=== PATIENT | female | born 1960 | race Caucasian/White ===

== ENCOUNTER 2017-02-05 10:16 | Emergency (ER) | payer BC, OTHER ==
[2017-02-05] MEDS ORDERED: Aspirin 81 MG Tab.Chew PO ONE (10:18)
--- NOTE | 2017-02-05 10:32 | EDM.PDOC ---
ED HPI GENERAL MEDICAL PROBLEM - General Chief Complaint: Chest Pain Stated Complaint: CHEST PAIN Time Seen by Provider: 02/05/17 10:16 Source of Information: Reports: Patient, Family History Limitations: Reports: No Limitations - History of Present Illness INITIAL COMMENTS - FREE TEXT/NARRATIVE: 56 years old w f came to the ed due to sudden onset of pain at her left ant CW as she got up this am. No trauma. First event. No N/V/D ot dizziness or any other acute medical issues. BP 123/67 puls 70 RR16 Temp 36.5 Onset: Today Onset Date: 02/05/17 Onset Time: 06:00 Duration: Hour(s): Location: Reports: Chest Quality: Reports: Ache Severity: Mild Improves with: Reports: Rest Worsens with: Reports: Movement Associated Symptoms: Reports: No Other Symptoms Left Chest Pain Score (Numeric/FACES): 5 - Related Data Allergies Allergy/AdvReac Type Severity Reaction Status Date / Time No Known Allergies Allergy Verified 02/05/17 10:25 Home Meds: Home Meds NK [No Known Home Meds] 02/05/17 [History] ED ROS GENERAL - Review of Systems Review Of Systems: See Below Constitutional: Reports: No Symptoms HEENT: Reports: No Symptoms Respiratory: Reports: No Symptoms Cardiovascular: Reports: Chest Pain (with deep indpiration) Endocrine: Reports: No Symptoms GI/Abdominal: Reports: No Symptoms : Reports: No Symptoms Musculoskeletal: Reports: No Symptoms Skin: Reports: No Symptoms Neurological: Reports: No Symptoms Psychiatric: Reports: No Symptoms Hematologic/Lymphatic: Reports: No Symptoms Immunologic: Reports: No Symptoms ED EXAM, GENERAL - Physical Exam Exam: See Below Exam Limited By: No Limitations General Appearance: Alert, WD/WN, No Apparent Distress Eye Exam: Bilateral Eye: Normal Inspection Ears: Normal External Exam Ear Exam: Bilateral Ear: Auricle Normal Nose: Normal Inspection, Normal Mucosa Throat/Mouth: Normal Inspection, Normal Lips, Normal Teeth Head: Atraumatic, Normocephalic Neck: Normal Inspection, Supple, Non-Tender Respiratory/Chest: No Respiratory Distress, Lungs Clear, Normal Breath Sounds, Other (chest wall tenderness) Cardiovascular: Normal Peripheral Pulses, Regular Rate, Rhythm, No Edema, No Gallop Peripheral Pulses: 1+: Femoral (L), Femoral (R) GI/Abdominal: Normal Bowel Sounds, Soft, Non-Tender (Female) Exam: Deferred Rectal (Female) Exam: Deferred Back Exam: Normal Inspection, Full Range of Motion Extremities: Normal Inspection, Normal Range of Motion, Non-Tender, No Pedal Edema Neurological: Alert, Oriented, CN II-XII Intact, Normal Cognition, Normal Gait Psychiatric: Normal Affect, Normal Mood Skin Exam: Warm, Dry, Intact, Normal Color, No Rash Lymphatic: No Adenopathy EKG INTERPRETATION EKG Date: 02/05/17 Time: 10:20 Rhythm: NSR Rate (Beats/Min): 70 Hostetter: Normal P-Wave: Present QRS: Normal ST-T: Normal QT: Normal Comparison: NA - No Prior EKG Course - Vital Signs Text/Narrative:: 56 years old w f came to the ed due to sudden onset of pain at her left ant CW as she got up this am. No trauma. First event. No N/V/D ot dizziness or any other acute medical issues. BP 123/67 puls 70 RR16 Temp 36.5 PE: pleuritic CP left ant chest Labs: all WNL Iamging. CXR: NAD Impression: pleuritic Chest pain Tx: Toradol/ice. pt refused Reexam: Improved Plan: D/C with instructions Last Recorded V/S: Last Vital Signs Temp 36.9 C 02/05/17 10:43 Pulse 82 02/05/17 10:43 Resp 18 02/05/17 10:43 BP 141/75 H 02/05/17 10:43 Pulse Ox 100 02/05/17 10:43 - Orders/Labs/Meds Orders: Active Orders 24 hr Category Date Time Status EKG Documentation Completion [RC] ASDIRECTED Care 02/05/17 10:33 Inactive EKG 12 Lead [EK] Routine Ther 02/05/17 10:29 Ordered EKG 12 Lead [EK] Routine Ther 02/05/17 10:33 Stop Req Labs: Laboratory Tests 02/05/17 02/05/17 02/05/17 Range/Units 10:40 10:40 10:40 WBC 5.1 (4.5-12.0) X10-3/uL RBC 4.80 (3.23-5.20) x10(6)uL Hgb 14.3 (11.5-15.5) g/dL Hct 41.7 (30.0-51.3) % MCV 86.9 (80-96) fL MCH 29.8 (27.7-33.6) pg MCHC 34.2 (32.2-35.4) g/dL RDW 12.2 (11.5-15.5) % Plt Count 287 (125-369) X10(3)uL MPV 8.4 (7.4-10.4) fL Neut % (Auto) 50.9 (46-82) % Lymph % (Auto) 36.5 (13-37) % Nye % (Auto) 7.5 (4-12) % Eos % (Auto) 5 (1.0-5.0) % Baso % (Auto) 1 (0-2) % Neut # (Auto) 2.6 (1.6-8.3) # Lymph # (Auto) 1.9 (0.6-5.0) # Nye # (Auto) 0.4 (0.0-1.3) # Eos # (Auto) 0.2 (0.0-0.8) # Baso # (Auto) 0.0 (0.0-0.2) # Sodium 136 (135-145) mmol/L Potassium 4.2 (3.5-5.3) mmol/L Chloride 101 (100-110) mmol/L Carbon Dioxide 28 (23-29) mmol/L BUN 15 (5-20) mg/dL Creatinine 0.8 (0.6-1.3) mg/dL Est Cr Clr Drug Dosing 72.34 mL/min Estimated GFR (MDRD) > 60 (>60) BUN/Creatinine Ratio 18.8 (9-20) Glucose 102 (80-116) mg/dL Calcium 9.3 (8.6-10.2) mg/dL Troponin I < 0.01 L (0.02-0.06) NG/ML Meds: Medications Discontinued Medications Generic Name Dose Route Start Last Admin Trade Name Freq PRN Reason Stop Dose Admin Aspirin 324 mg 02/05/17 10:18 02/05/17 10:22 Aspirin PO 02/05/17 10:19 324 mg ONETIME ONE Administration Ketorolac Tromethamine 30 mg 02/05/17 10:34 02/05/17 10:52 Toradol IVPUSH 02/05/17 10:35 Not Given ONETIME ONE Departure - Departure Time of Disposition: 11:13 Disposition: Home, Self-Care 01 Condition: Good Clinical Impression: Pleuritic chest pain Instructions: Pleurisy, [id number] Referrals: PCP,None [Primary Care Provider] - Forms: ED Department Discharge Additional Instructions: Please take motrin with food for pain, please apply ice to the affected area, please/ f/u, come back if your symptoms worsen. - My Orders Last 24 Hours: My Active Orders 02/05/17 10:29 EKG 12 Lead [EK] Routine 02/05/17 10:33 EKG Documentation Completion [RC] ASDIRECTED EKG 12 Lead [EK] Routine - Assessment/Plan Last 24 Hours: My Active Orders 02/05/17 10:29 EKG 12 Lead [EK] Routine 02/05/17 10:33 EKG Documentation Completion [RC] ASDIRECTED EKG 12 Lead [EK] Routine
[2017-02-05] MEDS ORDERED: Ketorolac 30 MG/ML SDV IVPUSH ONE (10:34)
[2017-02-05 10:44] VITALS: BP 141/75
--- NOTE | 2017-02-05 12:23 | CR ---
INDICATION: Chest pain. CHEST: An AP upright portable view of the chest was obtained. Somewhat flattened diaphragm leaves suggest the possibility of COPD along with hyperaeration. The heart appeared normal in size and shape. The mediastinum was unremarkable. Overlying EKG leads are noted. An active infiltrate or effusion was not identified. IMPRESSION: 1. No acute process. 2. Possible COPD - correlate clinically. MTDD
== END 2017-02-05 11:15 | disposition home or self-care (01) ==
LOC: FB.ED 10:16
DX: R07.81 Pleurodynia (principal)
CPT/HCPCS: 36415; 71010; 80048; 84484; 85025; 93005; 99284; A9270